=== PATIENT | female | born 1960 | race African-American/Black ===

== ENCOUNTER 2024-05-14 11:46 | Emergency (ER) | payer MEDICARE, MEDICAID ==
[~2024-05-14] VITALS: Ht 167.6 cm; Wt 105.2 kg
[~2024-05-14 11:46] MED LIST: AMLO10TA4; LOSA-415; VALS80TA2
[2024-05-14 11:48] VITALS: O2SAT 100
[2024-05-14 12:23] LABS: BASOPHILS % 0.6 % (0.0-2.0); EOSINOPHILS % 0.9 % (0.0-5.0); HEMATOCRIT. 35.5 % (36.0-48.0); HEMOGLOBIN. 11.7 g/dL (12.0-16.0); LYMPHOCYTES % 22.4 % (20.0-50.0); MEAN CORPUSCULAR HGB CONC 33.1 g/dL (31.0-37.0); MEAN CORPUSCULAR VOLUME 93.5 fL (81.0-99.0); MEAN PLATELET VOLUME 10.1 fl (7.4-10.4); MONOCYTES % 7.4 % (2.0-8.0); NEUTROPHILS % 68.7 % (40.0-76.0); PLATELET 174 x1000/uL (130-400); RED BLOOD CELL COUNT 3.79 mill/uL (4.2-5.4); RED CELL DISTRIBUTION WIDTH 13.2 % (11.6-14.6); WHITE BLOOD COUNT 8.4 x1000/uL (4.5-11.0)
[2024-05-14 12:41] LABS: CHLORIDE 108 mEq/L (98-107); POTASSIUM 3.1 mEq/L (3.5-5.1); SODIUM 140 mEq/L (136-145)
[2024-05-14 12:42] LABS: CALCIUM 9.1 mg/dL (8.7-10.4); CARBON DIOXIDE 27 mEq/L (21-32)
[2024-05-14 12:47] LABS: CREATININE 0.7 mg/dL (0.6-1.0); GLUCOSE 91 mg/dL (70-105)
[2024-05-14 12:49] LABS: ALANINE AMINOTRANSFERASE 17 IU/L (10-49); ALBUMIN 4.4 g/dL (3.2-4.8); ASPARTATE AMINOTRANSFERASE 16 IU/L (<34); BILIRUBIN DIRECT 0.2 mg/dL (<=3.0); BILIRUBIN TOTAL 0.7 mg/dL (0.1-1.0); PROTEIN TOTAL 6.9 g/dL (6.0-8.3)
[2024-05-14 13:14] LABS: UREA NITROGEN BLOOD < 5 mg/dL (9-23)
[2024-05-14 13:42] LABS: CLARITY URINE CLEAR (CLEAR); COLOR URINE YELLOW (YELLOW); GLUCOSE URINE NEGATIVE (NEGATIVE); KETONES URINE NEGATIVE (NEGATIVE); LEUKOCYTE ESTERASE URINE NEGATIVE (NEGATIVE); NITRITE URINE NEGATIVE (NEGATIVE); OCCULT BLOOD URINE NEGATIVE (NEGATIVE); PH URINE 6.5 (4.5-8.0); PROTEIN URINE TRACE (NEGATIVE); UROBILINOGEN URINE 0.2 E.U./dL (0.2-1.0)
[2024-05-14] MEDS: KETOROLAC 30MG/ML VIAL IM NR (13:45)
[2024-05-14] MEDS: POTASSIUM CHLORIDE 20MEQ/PACKET PO NR (13:45)
[2024-05-14 14:00] VITALS: BP 149/57; PULSE 85; RESP 17; TEMP 36.66960; O2SAT 100
[2024-05-14] MEDS ORDERED: IBUP-2030 MT (14:10)
[2024-05-14 14:23] LABS: BACTERIA URINE 1+; RBC URINE 0-2 /hpf (0-2); SQUAMOUS EPITHELIAL CELL URINE 3+ /lpf (RARE/1+)
[2024-05-14 14:25] LABS: WBC URINE 0-2 /hpf (0-2)
== END 2024-05-14 14:26 | disposition home or self-care (01) ==
LOC: ER 12:29
DX: C78.6 Secondary malignant neoplasm of retroperitoneum and peritoneum (principal); E78.00 Pure hypercholesterolemia, unspecified; I10 Essential (primary) hypertension; Z98.890 Other specified postprocedural states
CPT/HCPCS: 99285; 74176; 80076; 80048; 81003; 85025; 36415; 96372; J1885